=== PATIENT | female | born 1995 | race Caucasian/White ===

== ENCOUNTER 2018-08-07 00:01 | Inpatient (IN) | payer OTHER ==
[~2018-08-07] VITALS: Ht 175.3 cm; Wt 118.0 kg
[2018-08-08] MEDS ORDERED: VITAFOL-OB+DHA1 EACH PO (00:38)
[2018-08-08] MEDS ORDERED: MAGNESIUM250 M1 PO (00:39)
[2018-08-08] MEDS ORDERED: CALCIUM600 MG PO (00:39)
[2018-08-08] MEDS ORDERED: VITAMIN D-32000 UNIT PO (00:39)
--- NOTE | 2018-08-08 09:16 | PR ---
[facility] [facility] [address] [facility] [place], [place] [address] Signed Progress Notes IP Datetime Report Generated by CPN: 08/08/2018 09:16 PROGRESS NOTES: [id number] Impression: Normal progression of labor Procedures: Artificial ROM Plan: Continue present management VITAL SIGNS: [id number] Vital Signs: Reviewed; Within Normal Limits EXAM: [id number] Dilatation: 2.5 Effacement: 0 Station: -3 Uterine Contractions: every 1-2 minutes MEMBRANES: [id number] Membrane Status: Ruptured Amniotic Fluid Color: Clear ROM Note: AROM without difficulty, moderate amount clear fluid. Comments: Will continue with Induction, patient planning on NCB, possibly Nitrous Oxide Fetus A: [id number] FHR Baseline: 130 Variability: Moderate 6-25bpm Accelerations: 15X15 Presentation: Vertex Fetus B: [id number] Signing Physician: Sahra Fitzgerald MD Copies: ~ *Electronically Signed* 08/08/18 09 SAHRA FITZGERALD MD PATIENT NAME: KRISTIE JHAVERI PROGRESS NOTE DATE OF : [birth year] PHYSICIAN: SAHRA FITZGERALD MD RPT #: [id number] REPORT IS CONFIDENTIAL AND NOT TO BE RELEASED WITHOUT AUTHORIZATION
--- NOTE | 2018-08-08 11:37 | PR ---
[facility] [address] [facility] [place] [address] Signed Progress Notes IP Datetime Report Generated by CPN: 08/08/2018 11:37 PROGRESS NOTES: [id number] Impression: Normal progression of labor Procedures: Artificial ROM Plan: Continue present management VITAL SIGNS: [id number] Vital Signs: Reviewed; Within Normal Limits EXAM: [id number] Dilatation: 3.0 Effacement: 50 Station: -3 Uterine Contractions: every 1-3 minutes MEMBRANES: [id number] Membrane Status: Ruptured Amniotic Fluid Color: Clear ROM Note: AROM without difficulty, moderate amount clear fluid. Comments: Tolerating contractions well, up walking. Will continue monitoring Fetus A: [id number] FHR Baseline: 130 Variability: Moderate 6-25bpm Accelerations: 15X15 Presentation: Vertex Fetus B: [id number] Signing Physician: Sahra Fitzgerald MD Copies: ~ *Electronically Signed* 08/08/18 1137 SAHRA FITZGERALD MD PATIENT NAME: KRISTIE JHAVERI PROGRESS NOTE DATE OF : [birth year] PHYSICIAN: SAHRA FITZGERALD MD RPT #: [id number] REPORT IS CONFIDENTIAL AND NOT TO BE RELEASED WITHOUT AUTHORIZATION
--- NOTE | 2018-08-08 11:54 | NUR ---
IV START NOTE CALLED TO OB TO EVALUATE KRITSIE FOR POSSIBLE ALTERNATE IV ACCESS. U/S USED TO START AN 18G 2.25 IN CATH IV IN THE RIGHT FA USING U/S. 0.5ML 1% LIDOCANE USED AT THE SITE. CHLORAPREP USED FOR CLEANING. STERILE LUBE USED FOR U/S GEL. PT TOLERATED PROCEDURE WELL. ONE ATTEMPT WAS NEEDED FOR SUCCESS IN THE LEFT FOREARM.
--- NOTE | 2018-08-08 14:00 | PR ---
[facility] [address] [facility] [place], [place] [address] Signed Progress Notes IP Datetime Report Generated by CPN: 08/08/2018 14:00 PROGRESS NOTES: [id number] Impression: Slow Progression of Labor Procedures: Artificial ROM Plan: Augmentation VITAL SIGNS: [id number] Vital Signs: Reviewed; Within Normal Limits EXAM: [id number] Dilatation: 3.0 Effacement: 50 Station: -3 Uterine Contractions: every 1-3 minutes MEMBRANES: [id number] Membrane Status: Ruptured Amniotic Fluid Color: Clear ROM Note: AROM without difficulty, moderate amount clear fluid. Comments: No cervical change in about 2 hours, patient comfortable with contractions. Will start low dose Pitocin. Fetus A: [id number] FHR Baseline: 140 Variability: Moderate 6-25bpm Accelerations: 15X15 Presentation: Vertex Fetus B: [id number] Signing Physician: Sahra Fitzgerald MD Copies: ~ *Electronically Signed* 08/08/18 SAHRA ORTEGA MD PATIENT NAME: KRISTIE JHAVERI PROGRESS NOTE DATE OF : [birth year] PHYSICIAN: SAHRA FITZGERALD MD RPT #: [id number] REPORT IS CONFIDENTIAL AND NOT TO BE RELEASED WITHOUT AUTHORIZATION
--- NOTE | 2018-08-08 16:41 | PR ---
[facility] [address] [facility] [place], [place] [address] Signed Progress Notes IP Datetime Report Generated by CPN: 08/08/2018 16:41 PROGRESS NOTES: [id number] Impression: Slow Progression of Labor Procedures: Artificial ROM Plan: Augmentation VITAL SIGNS: [id number] Vital Signs: Reviewed; Within Normal Limits EXAM: [id number] Dilatation: 3.0 Effacement: 50 Station: -3 Uterine Contractions: spacing out MEMBRANES: [id number] Membrane Status: Ruptured Amniotic Fluid Color: Clear ROM Note: AROM without difficulty, moderate amount clear fluid. Comments: Continue increasing Pitocin to get good labor pattern Fetus A: [id number] FHR Baseline: 145 Variability: Moderate 6-25bpm Accelerations: 15X15 Presentation: Vertex Fetus B: [id number] Signing Physician: Sahra Fitzgerald MD Copies: ~ *Electronically Signed* 08/08/18 1641 SAHRA FITZGERALD MD PATIENT NAME: KRISTIE JHAVERI PROGRESS NOTE DATE OF : [birth year] PHYSICIAN: SAHRA FITZGERALD MD RPT #: [id number] REPORT IS CONFIDENTIAL AND NOT TO BE RELEASED WITHOUT AUTHORIZATION
--- NOTE | 2018-08-08 21:49 | PR ---
[facility] [address] [facility] [place], [place] [address] Signed Progress Notes IP Datetime Report Generated by CPN: 08/08/2018 21:49 PROGRESS NOTES: [id number] Impression: Slow Progression of Labor Procedures: Intrauterine Pressure Catheter; Scalp Electrode Plan: Continue present management VITAL SIGNS: [id number] Vital Signs: Reviewed; Within Normal Limits EXAM: [id number] Dilatation: 5.0 Effacement: 90 Station: -2 Uterine Contractions: every 1-3 minutes MEMBRANES: [id number] Membrane Status: Ruptured Amniotic Fluid Color: Clear ROM Note: AROM without difficulty, moderate amount clear fluid. Comments: Comfortable with Epidural, but slow progress. IUPC showing adeqkuate contractions, so expect more cervical change now. Discussed with patient Fetus A: [id number] FHR Baseline: 140 Variability: Moderate 6-25bpm Accelerations: 15X15 Presentation: Vertex Fetus B: [id number] Signing Physician: Sudhir Fitzgerald MD Copies: ~ *Electronically Signed* 08/08/18 2149 SUDHIR FITZGERALD MD PATIENT NAME: KRISTIE JHAVERI RICH PROGRESS NOTE DATE OF : [birth year] PHYSICIAN: SUDHIR FITZGERALD MD RPT #: [id number] REPORT IS CONFIDENTIAL AND NOT TO BE RELEASED WITHOUT AUTHORIZATION
--- NOTE | 2018-08-08 23:47 | PR ---
[facility] [address] [place], [place] [address] Signed Progress Notes IP Datetime Report Generated by CARMELA: 08/08/2018 23:47 PROGRESS NOTES: [id number] Impression: Arrest of dilatation/descent Procedures: Intrauterine Pressure Catheter; Scalp Electrode Plan: Deliver- Section Informed Consent Obtain: Section Delivery VITAL SIGNS: [id number] Vital Signs: Reviewed; Within Normal Limits EXAM: [id number] Dilatation: 5.0 Effacement: 90 Station: -2 Uterine Contractions: every 1-3 minutes MEMBRANES: [id number] Membrane Status: Ruptured Amniotic Fluid Color: Clear ROM Note: AROM without difficulty, moderate amount clear fluid. Comments: Patient comfortable with Epidural, but no cervical change for about 3 hours, now with some caput and head still not well-applied against cervix. Fetus LGA with EFW >9 #, so recommend C/S. Discussed risks vs benefits, timing, option of trying for a little while longer since good status, but increased risk of more bleeding/infection. Patient ready for C/S. Consent signed. call center consultant to OR (Anesthesia and OR crew called) Fetus A: [id number] FHR Baseline: 145 Variability: Moderate 6-25bpm Accelerations: 15X15 Presentation: Vertex Fetus B: [id number] Signing Physician: Sudhir Fitzgerald MD Copies: ~ *Electronically Signed* 08/08/18 2331 SUDHIR FITZGERALD MD PATIENT NAME: KRISTIE JHAVERI PROGRESS NOTE DATE OF : [birth year] PHYSICIAN: SUDHIR FITZGERALD MD RPT #: [id number] REPORT IS CONFIDENTIAL AND NOT TO BE RELEASED WITHOUT AUTHORIZATION
--- NOTE | 2018-08-09 01:21 | NUR ---
08/09/18 0121 AnujLy MOM, BABE, AND DAD ARE BACK TO [facility] ROOM. PT IS C/O BEING COLD AND VISIBLY SHIVERING. DENIES ANY PAIN AT THIS TIME.
--- NOTE | 2018-08-09 11:45 | OR ---
[facility] [place] [facility] [address] [facility] [place], [place] [address] Signed DATE OF OPERATION: 08/09/2018 SURGEON: Sudhir Rodriguez MD PREOPERATIVE DIAGNOSIS: Large for gestational age fetus and failure to progress. POSTOPERATIVE DIAGNOSIS: Large for gestational age fetus and failure to progress. PROCEDURE PERFORMED: Primary low-transverse segment section delivery of live female infant. METAL CONTROL WORKER: Zoltan Negron DO ANESTHESIA: Epidural. ESTIMATED BLOOD LOSS: 750 mL. COMPLICATIONS: None. DRAINS: Hilton to bladder. FINDINGS: Live female , Apgars 8 and 9. Weight 9 pounds 9 ounces. Normal uterus. Normal tubes and ovaries bilateral. DESCRIPTION OF PROCEDURE: The patient was brought to the operating room, placed in supine position. After adequate epidural anesthesia was obtained, was prepped and draped in usual sterile fashion. The patient already had Hilton catheter in place. A Pfannenstiel skin incision was made with a scalpel and extended through subcutaneous tissue with the Bovie. The fascia was nicked with scalpel and extended in transverse fashion using curved scissors. The underlying abdominal musculature was bluntly and sharply from the fascia above and below the incision. The abdominal musculature was bluntly and sharply Electronically Signed By: SUDHIR RODRIGUEZ MD 08/09/18 1145 PATIENT NAME: KRISTIE JHAVERI OPERATIVE REPORT DATE OF : [birth year] REPORT #: [id number] PHYSICIAN: SUDHIR RODRIGUEZ MD PCP: NO PRIMARY CARE PHYSICIAN REPORT IS CONFIDENTIAL AND NOT TO BE RELEASED WITHOUT AUTHORIZATION [facility] [place] [facility] [address] [place], [place] [address] Signed along the midline. Anterior wall peritoneum was then grasped with hemostat, elevated, nicked with scissors, and then the peritoneal opening extended with blunt dissection. The Alex self-retaining retractor was inserted into the incision and tightened in place. The lower uterine segment was identified and the lower uterine segment noted to be thin. Scalpel was used to carefully renetta the lower uterine segment and then finger dissection used to extend the incision in transverse fashion. The was noted to be in vertex LOT presentation. The head was easily delivered from the incision. There was a nuchal cord once loose and this was removed. The rest of the infant was then easily delivered from the incision. The mouth and nose were gently suctioned with bulb syringe while the cord was doubly clamped and cut. The infant was passed off table in good condition to awaiting nurse. The placenta was then manually removed and uterine cavity explored with lap pad to remove any retained membranes. An angle stitch of 0 Monocryl was placed at one end of incision on the right side. The left angle noted to have a small extension downward right at the angle and so fingers were placed behind the uterus to avoid the vessels and any bowel and 0 Monocryl was used to close the small extension. This was run up to the main incision. A running locking stitch of 0 Monocryl was then used to close the regular incision. A 2nd running stitch of 0 Monocryl was used to imbricate the first layer, starting again with a small extension and then up to the angle and then across the incision. At this point, good hemostasis was noted. The entire pelvis was irrigated, suctioned, examined, any bleeding spots cauterized with the Bovie. When good hemostasis was obtained, the Alex retractor was removed and a sheet of ACell placed over the lower uterine segment to help with healing. The anterior wall peritoneum was then closed using running stitch of 2-0 Vicryl suture. The abdominal musculature was reapproximated using interrupted stitches of 0 Vicryl suture. The abdominal wall was then irrigated, suctioned, examined of any bleeding spots, cauterized with the Bovie. Powdered ACell sprinkled on the muscle again to help with healing and then the fascia closed using two running stitches of 0 Vicryl suture meeting in the midline. Subcutaneous tissue was then irrigated, suctioned, examined, and any bleeding spots cauterized with the Bovie. Subcutaneous tissue was closed using interrupted stitches of 3-0 Vicryl suture. The skin was reapproximated using skin clips. The patient tolerated the procedure well, went to recovery room in good condition. The sponge, needle, and instrument count correct at the end of the procedure. MD ALVINO Gan/MODL /[id number] Electronically Signed By: SUDHIR RODRIGUEZ MD 08/09/18 1145 PATIENT NAME: KRISTIE JHAVERI OPERATIVE REPORT DATE OF : [birth year] REPORT #: [id number] PHYSICIAN: SUDHIR RODRIGUEZ MD PCP: NO PRIMARY CARE PHYSICIAN REPORT IS CONFIDENTIAL AND NOT TO BE RELEASED WITHOUT AUTHORIZATION [facility] [place] [facility] [address] [place] [address] Signed Copies: ~ Electronically Signed By: SUDHIR RODRIGUEZ MD 08/09/18 1145 PATIENT NAME: KRISTIE JHAVERI RICH OPERATIVE REPORT DATE OF : [birth year] REPORT #: [id number] PHYSICIAN: SUDHIR RODRIGUEZ MD PCP: NO PRIMARY CARE PHYSICIAN REPORT IS CONFIDENTIAL AND NOT TO BE RELEASED WITHOUT AUTHORIZATION
--- NOTE | 2018-08-09 12:14 | PR ---
[facility] [address] [facility] [place] [address] Signed PP Progress Notes Datetime Report Generated by CPN: 08/09/2018 12:14 SUBJECTIVE: [id number] Pain: Within normal limits Nausea/Vomiting: Denies Vital Signs: [id number] Vital Signs: Reviewed; Within Normal Limits EXAM: [id number] Abdomen/Uterus: Normal Lochia: Normal Extremities: Normal Incision: Normal Exam Comments: dressing clean and dry IMPRESSION/PLAN/PROCEDURES: [id number] Impression: Normal progression Plan: Continue present management Procedures: None Progress Notes: Doing well, without complaint, few elevated BP's but go back to normal right away; will continue to follow Signing Physician: Sahra Fitzgerald MD Copies: ~ *Electronically Signed* 08/09/18 1214 SAHRA FITZGERALD MD PATIENT NAME: KRISTIE JHAVERI PROGRESS NOTE DATE OF : [birth year] PHYSICIAN: SAHRA FITZGERALD MD RPT #: [id number] REPORT IS CONFIDENTIAL AND NOT TO BE RELEASED WITHOUT AUTHORIZATION
--- NOTE | 2018-08-10 08:50 | PR ---
[facility] [address] [facility] [place] [address] Signed PP Progress Notes Datetime Report Generated by CPN: 08/10/2018 08:50 SUBJECTIVE: [id number] Pain: Within normal limits Nausea/Vomiting: Denies Vital Signs: [id number] Vital Signs: Reviewed; Within Normal Limits Notable Details: PP HGb/Hct = 9.4/28.5 EXAM: [id number] Abdomen/Uterus: Normal Lochia: Normal Extremities: Normal Incision: Normal Exam Comments: dressing clean and dry IMPRESSION/PLAN/PROCEDURES: [id number] Impression: Normal progression Plan: Continue present management Procedures: None Progress Notes: Doing well, without complaint. Increase activity as tolerated Signing Physician: Sahra Fitzgerald MD Copies: ~ *Electronically Signed* 08/10/18 0850 SAHRA FITZGERALD MD PATIENT NAME: KRISTIE JHAVERI PROGRESS NOTE DATE OF : [birth year] PHYSICIAN: SAHRA FITZGERALD MD RPT #: [id number] REPORT IS CONFIDENTIAL AND NOT TO BE RELEASED WITHOUT AUTHORIZATION
--- NOTE | 2018-08-11 11:56 | PR ---
[facility] [address] [facility] [place], [place] [address] Signed PP Progress Notes Datetime Report Generated by CPN: 08/11/2018 11:56 SUBJECTIVE: [id number] Pain: Within normal limits Nausea/Vomiting: Denies Vital Signs: [id number] Vital Signs: Reviewed; Within Normal Limits Notable Details: PP HGb/Hct = 9.4/28.5 EXAM: [id number] Abdomen/Uterus: Normal Lochia: Normal Extremities: Normal Incision: Normal Exam Comments: dressing clean and dry IMPRESSION/PLAN/PROCEDURES: [id number] Impression: Normal progression Plan: Discharge Procedures: None Progress Notes: Doing well, without complaint, tolerating diet adn moving without problems, ready to go home Signing Physician: Sahra Fitzgerald MD Copies: ~ *Electronically Signed* 08/11/18 1156 SAHRA FITZGERALD MD PATIENT NAME: KRISTIE JHAVERI PROGRESS NOTE DATE OF : [birth year] PHYSICIAN: SAHRA FITZGERALD MD RPT #: [id number] REPORT IS CONFIDENTIAL AND NOT TO BE RELEASED WITHOUT AUTHORIZATION
== END 2018-08-11 14:05 | disposition home or self-care (01) | DRG 788 ==
LOC: FBC 00:01
PROVIDERS: ADMIT General Practice
PROC: 10H00YZ Insertion of Other Device into Products of Conception, Open Approach (ICD-10-PCS; 2018-08-08)
PROC: 10907ZC Drainage of Amniotic Fluid, Therapeutic from Products of Conception, Via Natural or Artificial Opening (ICD-10-PCS; 2018-08-08)
PROC: 3E0P7VZ Introduction of Hormone into Female Reproductive, Via Natural or Artificial Opening (ICD-10-PCS; 2018-08-08)
PROC: 10D00Z1 Extraction of Products of Conception, Low, Open Approach (ICD-10-PCS; principal; 2018-08-09 00:20)
DX: O36.63X0 Maternal care for excessive fetal growth, third trimester, not applicable or unspecified (principal); O62.1 Secondary uterine inertia; O69.81X0 Labor and delivery complicated by cord around neck, without compression, not applicable or unspecified; O90.81 Anemia of the puerperium; D64.9 Anemia, unspecified; O99.824 Streptococcus B carrier state complicating childbirth; Z3A.40 40 weeks gestation of pregnancy; Z37.0 Single live birth; O32.2XX0 Maternal care for transverse and oblique lie, not applicable or unspecified
CPT/HCPCS: 01961; 36415; 85027; C1763; J0131; J0690; J2405; J2540; J2590; J2765; J2795; J3010; J7060; J7120

== ENCOUNTER 2021-12-14 15:40 | Emergency (ER) | payer BC ==
[~2021-12-14] VITALS: Ht 175.3 cm; Wt 117.9 kg
[~2021-12-14 15:40] MED LIST: CALCIUM600 MG PO; MAGNESIUM250 M1 PO; VITAFOL-OB+DHA1 EACH PO; VITAMIN D-32000 UNIT PO
== END 2021-12-14 20:50 | disposition home or self-care (01) ==
LOC: ED 15:40
DX: S61.012A Laceration without foreign body of left thumb without damage to nail, initial encounter (principal); W26.8XXA Contact with other sharp object(s), not elsewhere classified, initial encounter; Z79.899 Other long term (current) drug therapy; Z23 Encounter for immunization
CPT/HCPCS: 90715

== ENCOUNTER 2022-10-08 07:55 | Emergency (ER) | payer OTHER ==
[~2022-10-08] VITALS: Ht 175.3 cm; Wt 110.2 kg
== END 2022-10-08 11:10 | disposition home or self-care (01) ==
LOC: ED 07:55
DX: R10.2 Pelvic and perineal pain (principal); Z97.5 Presence of (intrauterine) contraceptive device
CPT/HCPCS: 76830; 76856; 81001; 84703; 99284-25